=== PATIENT | female | born 1950 ===

== ENCOUNTER 2023-02-01 09:32 | Observation (INO) ==
--- NOTE | 2023-02-01 10:36 | XRay Report ---
XR chest 1V portable CLINICAL HISTORY: Chest pain, nonspecific TECHNIQUE: Single frontal radiograph of the chest was obtained. Comparison: None available at the time of this dictation. FINDINGS: No lines and tubes are seen. Calcified aortic knob is seen. The lungs are clear. Blunting of the righ t costophrenic angle is seen. IMPRESSION: Blunting of the right costophrenic angle may represent scarring and/or trace effusion. ACT 112: Negative or not required by law. Electronically signed by: Vivek Larkin M.D. 02/01/2023 10:35 AM
[2023-02-01 10:48] LABS: BUN Creatinine Ratio 21.5 (10-20); Calcium 9.1 mg/dl (8.6-10.3); Est GFR (African American) 103.5 ml/min; Est GFR (Non-African American) 89.3 ml/min; Potassium 3.8 mmol/L (3.5-5.1)
[2023-02-01 10:53] LABS: Basophils # (auto) 0.02 K/uL (0-0.2); Basophils % (auto) 0.2 %; Immature Granulocytes # (auto) 0.02 K/uL (0.01-0.20); Immature Granulocytes % (auto) 0.2 %; Lymphocytes # (auto) 0.96 K/uL (1.2-3.4); Lymphocytes % (auto) 11.6 %; Monocytes # (auto) 0.54 K/uL (0.11-0.59); Monocytes % (auto) 6.5 %; Neutrophils # (auto) 6.77 K/uL (1.40-6.50); Neutrophils % (auto) 81.5 %; Platelet Estimate Normal (Normal); Troponin I High Sensitivity 7.6 pg/ml (0-14)
[2023-02-01 10:54] LABS: Hematocrit (blood only) 38.4 % (37.0-47.0); Hemoglobin 12.1 g/dl (12.0-16.0); Mean Corpuscular Hemoglobin 30.3 pg (25.0-34.0); Mean Corpuscular Hgb Conc 31.5 g/dL (32.0-36.0); Mean Platelet Volume 11.4 fL (9.4-12.4); Platelet Count 209 K/uL (130-400); RDW Coefficient of Variation 12.1 % (11.5-14.5); RDW Standard Deviation 43.2 fL (36.4-46.3); White Blood Count 8.31 K/ul (4.8-10.8)
[2023-02-01 10:59] LABS: Partial Thromboplastin Ratio 0.8; Partial Thromboplastin Time 22.2 Seconds (21.0-31.0); Prothrombin Time 10.6 Seconds (9.0-12.0)
[2023-02-01 11:04] LABS: D Dimer 960 ug/L FEU (0-500)
[2023-02-01] MEDS ORDERED: OPTIRAY 320 125ml IV ONE (11:45)
--- NOTE | 2023-02-01 12:14 | CT Scan Report ---
CT angio chest PE protocol CLINICAL HISTORY: ro PE TECHNIQUE: Multidetector row helical CT of the chest was performed with angiographic protocol. Ruggiero l and sagittal reformations were obtained. Coronal and sagittal MIPS were obtained from the axial kate a set and were submitted for review. Automated dose lowering techniques and/or adjustment according to patient size were utilized for this exam. CT DOSE: 303.25 mGy.cm Comparison: None available at the time of this dictation. FINDINGS: Lungs and pleura: Right pleural effusion with underlying atelectasis and groundglass opacities.. Heart and pericardium: Heart size is normal. No pericardial effusion. Vessels: There is a pulmonary embolus in the right lower lobe segmental artery. Mediastinum and tiffani: Unremarkable. Chest wall and lower neck: Patient is status post thyroidectomy. Abdomen: Unremarkable. Bones: Degenerative changes in the thoracic spine. IMPRESSION: Right lower lobe pulmonary embolus is seen with associated pulmonary infarct. There is a small right pleural effusion. ACT 112: Negative or not required by law. Electronically signed by: Vivek Larkin M.D. 02/01/2023 12:12 PM
--- NOTE | 2023-02-01 12:43 | Electrocardiogram Report ---
Test Reason : Blood Pressure : / mmHG Vent. Rate : 079 BPM Atrial Rate : 079 BPM P-R Int : 132 ms QRS Dur : 090 ms QT Int : 380 ms P-R-T Axes : 037 041 038 degrees QTc Int : 435 ms Normal sinus rhythm Normal ECG No previous ECGs available Confirmed by Himanshu Vicente ([id number]) on 02/01/2023 12:43:03 PM Referred By: Confirmed By:Himanshu Vicente
[2023-02-01] MEDS ORDERED: Heparin IV Adult Wt-Based Standard WITH Bolus Protocol IV STA (13:41)
[2023-02-01] MEDS ORDERED: HEPARIN SOD (PORCINE) 1000 UNIT/ML IV ONE (13:56)
[2023-02-01] MEDS ORDERED: HEPARIN SODIUM/DEXTROSE 25,000 UNITS/500 ML BAG IV SCH (14:00)
--- NOTE | 2023-02-01 14:51 | History & Physical Report ---
Date of Service February 01, 2023 Assessment & Plan (1) Pulmonary embolism: (2) Pulmonary infarction: Plan: Acute PE with associated pulmonary infarction. Denies chest pain currently, will give pain meds if needed. No current need for oxygen. Anticoagulated on heparin. I contacted her pharmacy and apixaban would be >$500/mo but Xarelto was $80/month. Starter pack for Xarelto was ordered and will be at her pharmacy by tomorrow. Will plan to transition her to Xarelto when she is closer to discharge. Echo to evaluate if any heart strain. Appreciate pulmonary thoughts given infarction. CXR in am for monitoring. Will also monitor on telemetry. (3) H/O malignant neoplasm of breast: Plan: h/o this in 2010. Would encourage her to stay up to date with screening colonoscopy and mammograms and other age related screenings. (4) HTN (hypertension): Plan: chronic, stable. Cont losartan per home regimen. (5) Hypothyroid: Plan: acquired after surgery many years ago. Chronic, TSH pending but clinically stable. Cont Synthroid per home regimen. Heparin drip for DVT prophylaxis Full Code Dispo- to home in 1-2 days. [facility] of Present Illness Chief Complaint: chest pain Primary Care Provider: NO PCP 72 yo F presents with chest tightness. She reports a severe leg cramp a few days ago. She was short of breath, but no longer. She denies any other respiratory symptoms or fevers. She did travel here from [place], [place] by air and this was a 5 [address] flight. She did have a h/o breast cancer in 2010. She is from out of state and PCP records are not available for review. She denies anyherbal supplements, HRT or other medications which may be thrombogenic. She denies surgery, trauma or other known provoking factor. She recently travelled to [place] and is here for a short stay, then on to [facility] by car round trip followed by a cruise to [facility] [place]. She has no plans to be back in [place] for a few months and no established PCP here. Allergies Allergy/AdvReac Type Severity Reaction Status Date / Time pcn Allergy Severe Hives Uncoded 02/01/23 14:53 Home Medications Medication Instructions Recorded Confirmed Type atorvastatin 20 mg tablet 20 mg PO DAILY 02/01/23 02/01/23 History levothyroxine 75 mcg tablet 75 mcg PO DAILY 02/01/23 02/01/23 History losartan 50 mg tablet 50 mg PO DAILY 02/01/23 02/01/23 History rivaroxaban 15 mg (42)-20 mg (9) See Rx Instructions PO .COMPLEX 02/01/23 Rx tablets in a starter pack (Xarelto #51 ea DVT-PE Treatment 30-Day Starter) Past Med/Surg History Medical History (Updated 02/01/23 @ 16:40 by Amina Valladares, DO) Breast cancer s/p XRT and chemotherapy Dyslipidemia HTN (hypertension) Hypothyroid Surgical History S/P foot surgery S/P lumpectomy, left breast 2011 S/P shoulder surgery S/P thyroidectomy Social History Smoking Status: Never smoker Hx Alcohol Use: Yes Hx Substance Use: No Preferred Language: Telugu Feels Safe at Home: Yes Immunizations: Arcelia Huynh-daughter is preferred POA Review of Systems Review of Systems: All systems were reviewed and negative except as indicated on HPI above. Physical Exam Physical Exam: CONSTITUTIONAL: WNWD, vitals as above, generally well-appearing, NAD EYES: normal conjunctivae, no scleral icterus ENT: external ear and nose normal, MMM NECK: trachea midline RESPIRATORY: mild crackles at right base, no rales or wheezes, normal respiratory effort CARDIOVASCULAR: regular rate and rhythm, S1 and 2 heard without murmurs, gallops or rubs, no JVD, no peripheral edema CHEST: inspection of chest was normal GASTROINTESTINAL: soft, nontender, ND, no guarding MUSCULOSKELETAL: strength 5/5 throughout, head is normocephalic and atraumatic SKIN: warm and dry NEUROLOGIC: CN 2-12 grossly intact, no sensory deficit, normal cognition, normal speech, no tremor PSYCHIATRIC: alert cooperative and oriented to person, place and time. Euthymic mood, makes good eye contact, language grossly intact, recent and remote memory grossly intact. Results & Data Results & Data Vital Signs (Past 12 Hours) Vital Signs Temp Pulse Pulse Resp BP BP Pulse Ox 02/01/23 14:05 79 02/01/23 12:00 89 18 135/64 98 07/16/23 10:26 77 18 133/77 99 02/01/23 09:50 78 98 02/01/23 09:50 99 02/01/23 09:58 79 02/01/23 09:38 36.7 C 64 20 165/94 H 97 O2 Del Method 02/01/23 14:05 02/01/23 12:00 02/01/23 10:26 02/01/23 09:50 Room Air 02/01/23 09:50 Room Air 02/01/23 09:58 02/01/23 09:38 Room Air Laboratory Results Short CBC 02/01/23 Range/Units 09:50 WBC 8.31 (4.8-10.8) K/ul Hgb 12.1 (12.0-16.0) g/dl Hct 38.4 (37.0-47.0) % Plt Count 209 (130-400) K/uL BMP 02/01/23 09:50 Sodium 141 Potassium 3.8 Chloride 106 Carbon Dioxide 26 BUN 14 Creatinine 0.65 Glucose 108 H Calcium 9.1 Diagnostic Findings Chest X-Ray 02/01/23 09:52 XR chest 1V portable CLINICAL HISTORY: Chest pain, nonspecific TECHNIQUE: Single frontal radiograph of the chest was obtained. Comparison: None available at the time of this dictation. FINDINGS: No lines and tubes are seen. Calcified aortic knob is seen. The lungs are clear. Blunting of the right costophrenic angle is seen. IMPRESSION: Blunting of the right costophrenic angle may represent scarring and/or trace effusion. ACT 112: Negative or not required by law. Electronically signed by: Vivek Larkin M.D. 02/01/2023 10:35 AM Chest CTA 02/01/23 11:04 CT angio chest PE protocol CLINICAL HISTORY: ro PE TECHNIQUE: Multidetector row helical CT of the chest was performed with angiographic protocol. Coronal and sagittal reformations were obtained. Coronal and sagittal MIPS were obtained from the axial data set and were submitted for review. Automated dose lowering techniques and/or adjustment according to patient size were utilized for this exam. CT DOSE: 303.25 mGy.cm Comparison: None available at the time of this dictation. FINDINGS: Lungs and pleura: Right pleural effusion with underlying atelectasis and groundglass opacities.. Heart and pericardium: Heart size is normal. No pericardial effusion. Vessels: There is a pulmonary embolus in the right lower lobe segmental artery. Mediastinum and tiffani: Unremarkable. Chest wall and lower neck: Patient is status post thyroidectomy. Abdomen: Unremarkable. Bones: Degenerative changes in the thoracic spine. IMPRESSION: Right lower lobe pulmonary embolus is seen with associated pulmonary infarct. There is a small right pleural effusion. ACT 112: Negative or not required by law. Electronically signed by: Vivek Larkin M.D. 02/01/2023 12:12 PM Code Status & VTE Plan VTE Prophylaxis Plan VTE Prophylaxis will be ordered: Yes (1) Pulmonary embolism Acute cor pulmonale presence: without acute cor pulmonale Chronicity: acute Pulmonary embolism type: unspecified Qualified Code(s): I26.99 - Other pulmonary embolism without acute cor pulmonale
--- NOTE | 2023-02-01 15:40 | Emergency Department Note ---
History of Present Illness General Chief Complaint: Chest Pain Stated Complaint: CHEST PAIN/TIGHTNESS - REFERRED BY CELINE Time Seen by Provider: 02/01/23 09:52 History of Present Illness Provider Complaint: chest pain Onset (ago): day(s) 2 Duration: intermittent Onset: during rest Pain Location: substernal and left chest Pain Radiation: none Severity: moderate Maximum Pain Intensity: 7 Quality: + tightness Relieved By: + nothing Exacerbated By: + nothing Context: + recent travel; no recent surgery, no recent immobilization, no trauma/injury, no new medications or no history of DVT/PE Associated symptoms: + dyspnea and + cough; no nausea, no vomiting, no diaphoresis, no syncope, no palpitations or no leg swelling Treatments prior to arrival: none Home Medications Medication Instructions Recorded Confirmed Type apixaban 5 mg (74 tabs) tablets in 5 mg PO BID #74 ea 02/01/23 Rx a dose pack atorvastatin 20 mg tablet 20 mg PO DAILY 02/01/23 02/01/23 History levothyroxine 75 mcg tablet 75 mcg PO DAILY 02/01/23 02/01/23 History losartan 50 mg tablet 50 mg PO DAILY 02/01/23 02/01/23 History Allergies Allergy/AdvReac Type Severity Reaction Status Date / Time pcn Allergy Severe Hives Uncoded 02/01/23 14:53 Past Med/Surg History Medical History Breast cancer s/p XRT and chemotherapy Dyslipidemia HTN (hypertension) Surgical History S/P foot surgery S/P lumpectomy, left breast 2011 S/P shoulder surgery S/P thyroidectomy Social History Smoking Status: Never smoker Hx Alcohol Use: Yes Hx Substance Use: No Preferred Language: Chilean Feels Safe at Home: Yes Physical Exam Vital Signs Vital Signs - 24 hr 02/01/23 09:38 02/01/23 09:58 02/01/23 09:50 Temperature 36.7 C Temperature Source Temporal Artery Scan Pulse Rate 64 79 Pulse Rate [Left Finger] Respiratory Rate 20 Respiratory Effort / Characteristics Non-Labored Spontaneous Respiratory Depth Normal Respiratory Pattern Blood Pressure 165/94 H Blood Pressure [Left Arm] Blood Pressure Mean 117 Blood Pressure Mean [Left Arm] Blood Pressure Position [Left Arm] Pulse Oximetry 97 99 Oxygen Delivery Method Room Air Room Air Sepsis Recent Fever Within 48 Hours No Sepsis New/Unexplained Change in Mental Status N/A Sepsis Action Taken by Nursing No Action Required 02/01/23 09:50 02/01/23 10:26 02/01/23 12:00 Temperature Temperature Source Pulse Rate 78 Pulse Rate [Left Finger] 77 89 Respiratory Rate 18 18 Respiratory Effort / Characteristics Respiratory Depth Respiratory Pattern Blood Pressure Blood Pressure [Left Arm] 133/77 135/64 Blood Pressure Mean Blood Pressure Mean [Left Arm] 95 87 Blood Pressure Position [Left Arm] Sitting Sitting Pulse Oximetry 98 99 98 Oxygen Delivery Method Room Air Sepsis Recent Fever Within 48 Hours Sepsis New/Unexplained Change in Mental Status Sepsis Action Taken by Nursing 02/01/23 14:05 02/01/23 13:00 Temperature Temperature Source Pulse Rate 79 Pulse Rate [Left Finger] 79 Respiratory Rate 18 Respiratory Effort / Characteristics Non-Labored Spontaneous Respiratory Depth Respiratory Pattern Regular Blood Pressure Blood Pressure [Left Arm] 141/74 H Blood Pressure Mean Blood Pressure Mean [Left Arm] 96 Blood Pressure Position [Left Arm] Lying Pulse Oximetry 99 Oxygen Delivery Method Room Air Sepsis Recent Fever Within 48 Hours Sepsis New/Unexplained Change in Mental Status Sepsis Action Taken by Nursing Physical Exam GENERAL: oriented to person, place, and time. appears well-developed and well- nourished. HENT: Exam performed. - Head: Normocephalic and atraumatic. EYES: Conjunctivae and EOM are normal. Right eye exhibits no discharge. Left eye exhibits no discharge. No scleral icterus. NECK: Normal range of motion. Neck supple. No JVD present. CV: Normal rate, regular rhythm, normal heart sounds and intact distal pulses. There is no peripheral edema. Palpable radial pulses bue. PULM/CHEST: Effort normal and breath sounds normal. No respiratory distress. No stridor. no wheezes. no rales. ABD: The abdomen is soft. There is no tenderness. NEURO: Motor and sensation grossly intact. SKIN: Skin is warm and dry. He is not diaphoretic. PSYCH: normal mood and affect. Behavior is normal. Judgment and thought content normal. Course Course 951: The patient was evaluated in room B4. A complete history and physical exam was performed Administered Medications Heparin Sodium/Dextrose (Heparin Sodium/Dextrose) 25,000 units in 500 mls @ 0.02 mls/hr IV .Q24H PENDING SALE TO [facility]; Protocol Stop: 03/03/23 13:59 Last Admin: 02/01/23 14:06 Dose: 850 units/hr, 17 mls/hr Documented By: MARISEL Co-signed By: MURPHY Discontinued Medications Heparin Sodium (Porcine) (Heparin Sod (Porcine) 1000 Unit/Ml) 1 units IV NOW ONE Stop: 02/01/23 13:57 Last Admin: 02/01/23 14:06 Dose: 4,000 units Documented By: MARISEL Co-signed By: MURPHY Ioversol (Optiray 320 125ml) 120 ml IV ONCE ONE Stop: 02/01/23 11:46 Last Admin: 02/01/23 11:36 Dose: 120 ml Documented By: JOSE ANTONIO Medical Decision Making Laboratory Data Attestation: I reviewed the patient's lab results. 02/01/23 09:50 02/01/23 09:50 Labs: Lab Results 02/01/23 02/01/23 02/01/23 Range/Units 09:50 09:50 09:50 WBC 8.31 (4.8-10.8) K/ul RBC 4.00 L (4.20-5.40) M/uL Hgb 12.1 (12.0-16.0) g/dl Hct 38.4 (37.0-47.0) % MCV 96.0 (80.0-100.0) fL MCH 30.3 (25.0-34.0) pg MCHC 31.5 L (32.0-36.0) g/dL RDW Std Deviation 43.2 (36.4-46.3) fL RDW Coeff of Nai 12.1 (11.5-14.5) % Plt Count 209 (130-400) K/uL MPV 11.4 (9.4-12.4) fL Immature Gran % (Auto) 0.2 % Neut % (Auto) 81.5 % Lymph % (Auto) 11.6 % [place] % (Auto) 6.5 % Eos % (Auto) 0.0 % Baso % (Auto) 0.2 % Neut # (Auto) 6.77 H (1.40-6.50) K/uL Lymph # (Auto) 0.96 L (1.2-3.4) K/uL [place] # (Auto) 0.54 (0.11-0.59) K/uL Eos # (Auto) 0.00 (0-0.50) K/uL Baso # (Auto) 0.02 (0-0.2) K/uL Immature Gran # (Auto) 0.02 (0.01-0.20) K/uL Platelet Estimate Normal (Normal) PT 10.6 (9.0-12.0) Seconds INR 1.0 (0.9-1.1) APTT 22.2 (21.0-31.0) Seconds PTT Ratio 0.8 D-Dimer 960 H* (0-500) ug/L FEU Sodium 141 (136-145) mmol/L Potassium 3.8 (3.5-5.1) mmol/L Chloride 106 (98-107) mmol/L Carbon Dioxide 26 (21-32) mmol/L Anion Gap 9 (3-11) BUN 14 (6-23) mg/dl Creatinine 0.65 (0.6-1.2) mg/dl Est Cr Clr Drug Dosing 57.0 ml/min Est GFR ( Amer) 103.5 ml/min Est GFR (Non-Af Amer) 89.3 ml/min BUN/Creatinine Ratio 21.5 H (10-20) Glucose 108 H (70-99(Fasting)) mg/dl Calcium 9.1 (8.6-10.3) mg/dl Troponin I High Sens 7.6 (0-14) pg/ml Lipase 21 (11-82) U/L SARS-CoV-2, RNA, NAAT (NEGATIVE) 02/01/23 02/01/23 Range/Units 12:19 14:17 WBC (4.8-10.8) K/ul RBC (4.20-5.40) M/uL Hgb (12.0-16.0) g/dl Hct (37.0-47.0) % MCV (80.0-100.0) fL MCH (25.0-34.0) pg MCHC (32.0-36.0) g/dL RDW Std Deviation (36.4-46.3) fL RDW Coeff of Nai (11.5-14.5) % Plt Count (130-400) K/uL MPV (9.4-12.4) fL Immature Gran % (Auto) % Neut % (Auto) % Lymph % (Auto) % [place] % (Auto) % Eos % (Auto) % Baso % (Auto) % Neut # (Auto) (1.40-6.50) K/uL Lymph # (Auto) (1.2-3.4) K/uL [place] # (Auto) (0.11-0.59) K/uL Eos # (Auto) (0-0.50) K/uL Baso # (Auto) (0-0.2) K/uL Immature Gran # (Auto) (0.01-0.20) K/uL Platelet Estimate (Normal) PT (9.0-12.0) Seconds INR (0.9-1.1) APTT (21.0-31.0) Seconds PTT Ratio D-Dimer (0-500) ug/L FEU Sodium (136-145) mmol/L Potassium (3.5-5.1) mmol/L Chloride (98-107) mmol/L Carbon Dioxide (21-32) mmol/L Anion Gap (3-11) BUN (6-23) mg/dl Creatinine (0.6-1.2) mg/dl Est Cr Clr Drug Dosing ml/min Est GFR ( Amer) ml/min Est GFR (Non-Af Amer) ml/min BUN/Creatinine Ratio (10-20) Glucose (70-99(Fasting)) mg/dl Calcium (8.6-10.3) mg/dl Troponin I High Sens 6.8 (0-14) pg/ml Lipase (11-82) U/L SARS-CoV-2, RNA, NAAT NEGATIVE (NEGATIVE) MDM Narrative Cardiac monitoring: An order was placed for continuous cardiac monitoring. The monitor shows a rate of 80 with sinus rhythm interpreted by me Vital signs stable. Labs are notable for 2 sets of negative troponins and a positive D-dimer. CTA of the chest shows PE with pulmonary infarct. Patient has a class III intermediate PESI score. Joint decision-making was made with the patient regarding outpatient discharge with [facility] and follow-up outpatient versus inpatient admission. Patient is not from this area originally and is visiting from [place], she has no physicians in the area. Patient also reports that she is coming in and out of the area and traveling internationally over the next few weeks. Given this, I thought the patient had difficulty arranging outpatient follow-up if [facility] Patient will be admitted to this facility started on heparin and be evaluated by cardiology and pulmonology. [facility] hospitalist team Dr. Valladares aware of the patient. Pulmonary Embolism Severity Index (PESI) from [employer] on 02/01/2023 All calculations should be rechecked by clinician prior to use RESULT SUMMARY: 101 points Class III, Intermediate Risk: 3.2-7.1% 30-day mortality in this group. INPUTS: Age > 71 years History of cancer > 30 = Yes Impression & Plan Pulmonary embolism Critical Care Time Critical Care Time: Yes Total Critical Care Time: 43 I have personally spent greater than 43 minutes of critical care time in the direct management of this patient. This includes bedside care, interpretation of diagnostic studies, and testing, discussion with consultants, patient, and family members, and other required patient management activities. This 43 minutes is in excess of all separately billable procedures. Discharge Plan Visit Data Chief Complaint: Chest Pain Stated Complaint: CHEST PAIN/TIGHTNESS - REFERRED BY [facility] Provider: Parth Cardenas Discharge Problem: Pulmonary embolism Patient Disposition: Admitted As Inpatient Forms Stand Alone Forms: My [facility] Prescriptions Prescriptions: New apixaban 5 mg (74 tabs) tablets,dose pack 5 mg PO BID Qty: 74 0RF No Action losartan 50 mg tablet 50 mg PO DAILY atorvastatin 20 mg tablet 20 mg PO DAILY levothyroxine 75 mcg tablet 75 mcg PO DAILY Referrals Referrals: PCP,NO [Primary Care Provider] -
[2023-02-01] MEDS ORDERED: ACETAMINOPHEN 325 MG TAB PO PRN (17:48)
[2023-02-01 21:52] LABS: Partial Thromboplastin Ratio 2.1
[2023-02-01 22:12] LABS: Partial Thromboplastin Time 60.3 Seconds (21.0-31.0)
--- NOTE | 2023-02-01 22:46 | Ultrasound Report ---
US venous doppler LE BI CLINICAL HISTORY: acute PE, rule out DVT TECHNIQUE: Bilateral lower extremity real-time compression venous ultrasound with Color Doppler imagi ng. Utilizing real-time ultrasonic imaging multiple real time high-resolution ultrasonic images with compression and noncompression maneuvers of the deep venous system in addition to color doppler imagi ng were performed from the common femoral vein through the proximal calf veins. COMPARISON: None available at the time of this dictation. FINDINGS/IMPRESSION: Currently there is normal compressibility of the deep venous system from the common femoral vein thro ugh the proximal calf veins. No superficial venous thrombosis is identified. ACT 112: Negative or not required by law. Electronically signed by: Vivek Larkin M.D. 02/01/2023 10:45 PM
[2023-02-02 04:36] LABS: Hematocrit (blood only) 34.9 % (37.0-47.0); Hemoglobin 11.6 g/dl (12.0-16.0); Mean Corpuscular Hemoglobin 31.4 pg (25.0-34.0); Mean Corpuscular Hgb Conc 33.2 g/dL (32.0-36.0); Mean Corpuscular Volume 94.3 fL (80.0-100.0); Mean Platelet Volume 10.8 fL (9.4-12.4); Platelet Count 211 K/uL (130-400); RDW Coefficient of Variation 12.2 % (11.5-14.5); RDW Standard Deviation 42.5 fL (36.4-46.3); White Blood Count 6.01 K/ul (4.8-10.8)
[2023-02-02 04:53] LABS: BUN Creatinine Ratio 24.6 (10-20); Calcium 8.7 mg/dl (8.6-10.3); Creatinine Clr Calc Pharmacy 60.8 ml/min; Est GFR (African American) 105.7 ml/min; Est GFR (Non-African American) 91.2 ml/min; Potassium 3.5 mmol/L (3.5-5.1)
[2023-02-02 05:27] LABS: Partial Thromboplastin Ratio 2.1
[2023-02-02 05:34] LABS: Partial Thromboplastin Time 59.6 Seconds (21.0-31.0)
[2023-02-02] MEDS ORDERED: LEVOTHYROXINE SODIUM 75 MCG TABLET PO SCH (06:30)
--- NOTE | 2023-02-02 08:47 | Pulmonary Consultation ---
Date of Consultation February 02, 2023 Assessment & Plan (1) Pulmonary embolism: Acute cor pulmonale presence: without acute cor pulmonale Chronicity: acute Pulmonary embolism type: unspecified Qualified Code(s): I26.99 - Other pulmonary embolism without acute cor pulmonale (2) Pulmonary infarction: (3) Pleural effusion: Plan IMPRESSION: 72-year-old female significant past medical history presenting with new findings of RIGHT lower lobe pulmonary emboli with associated infarct and small pleural effusion. RECOMMENDATIONS: 1. Pulmonary embolism/pulmonary infarct - Patient with provoked event in the setting of significant long distance air travel. She can be started on a DOAC at this point. Echocardiogram reviewed and demonstrates an EF of 65 to 70% with normal RV pressures and size. Findings not consistent with pulmonary hypertension. Moving forward, the patient will be anticoagulated for a period of 3 to 6 months with close follow-up with her primary care providers moving forward. No utility in follow-up CTA, unless the patient were develop worsening symptoms including worsening pleuritic pain, fevers, worsening shortness of breath, or hemoptysis. Additionally, no need for follow-up echocardiogram and otherwise normal echocardiogram. Patient can continue to follow-up with her primary care provider for continued ordering and monitoring of DOAC therapy. As discussed with the patient, she was certainly continue to require DOAC therapy, especially with her anticipated travel in the next few months. 2. Pleural effusion - Uncertain if this represents relationship to pulmonary infarcts. Would monitor with follow-up chest x-ray in 4 weeks to assess effusion status. Size effusion not amenable to thoracentesis at this time. As discussed with the patient, if her symptoms were to worsen, this may prompt need for repeat CTA, however not indicated currently. Thank you for allowing us to participate in the care of this patient. Supervising Physician Co-Signing Physician Notes Patient seen and examined. EMR reviewed. Images were independently reviewed. The patient is doing well on room air. She states she anticipates being dismissed from the hospital today. She been started on blood thinners and is not having any bleeding complications. She not had any hemoptysis. Agree with assessment plan as noted by PA above. Would recommend lifelong anticoagulation given the patient's frequent airline travel. If she elects to discontinue anticoagulation, consideration for an outpatient hematology oncology evaluation and hypercoagulable work-up would be appropriate. The patient gets the majority of her care in [place] and does not have a primary care provider here. We will try and get her into a pulmonary clinic next week with a chest x-ray to ensure the effusion is not increasing in size. Recommended that she get copies of all of her medical records including CD of the images to take to her healthcare team in [place]. Thanks for the opportunity participating the care of this patient. Feel free to contact us with questions or concerns History of Present Illness Reason for Consultation: Pulmonary Infarction Requesting Physician: Dr. Valladares Attending Physician: Maximiliano Mitchell MD History of Present Illness Patient is a 72-year-old female with a significant past medical history of hypertension, hypothyroidism, and prior history of breast cancer who presented to the emergency department yesterday with complaints of chest pain and dyspnea on exertion. Patient recently traveled from [place] to her home in [place]. She subsequently flew from [place] to [place] this past week. She states that on she noticed an intense LEFT-sided calf cramp which is new for her. She states that this did resolve, but noticed that on Thursday she had some tightness in her chest. The chest tightness worsened with some associated breathlessness and dry cough which prompted emergency visit. During evaluation, the patient was noted to have an elevated D-dimer. CTA demonstrated RIGHT-sided pulmonary emboli with pulmonary infarct and small pleural effusion. She was started on heparin drip. Pulmonary medicine consulted for recommendations in the setting of pulmonary infarct. Upon evaluation today in room 2852, the patient is awake, alert, and oriented. She states that her symptoms have seemed to improve overnight and she has less discomfort with breathing. The patient reports no prior history of clotting disorders, but reports that her daughter does struggle with clotting issues and there is been issues with fertility related to clotting. The daughter does follow with a fabricator special items because of this. Patient is unaware of any underlying diagnoses otherwise. Patient reports no smoking history. She has had significant travel recently. No history of recurrence of malignancy. Patient currently denies complaints of dizziness, lightheadedness, palpitations, or pain elsewhere. Allergies Allergy/AdvReac Type Severity Reaction Status Date / Time Penicillins Allergy Severe Hives Verified 02/01/23 18:02 Home Medications Medication Instructions Recorded Confirmed Type atorvastatin 20 mg tablet 20 mg PO DAILY 02/01/23 02/01/23 History levothyroxine 75 mcg tablet 75 mcg PO DAILY 02/01/23 02/01/23 History losartan 50 mg tablet 50 mg PO DAILY 02/01/23 02/01/23 History rivaroxaban 15 mg (42)-20 mg (9) See Rx Instructions PO .COMPLEX 02/01/23 Rx tablets in a starter pack (Xarelto #51 ea DVT-PE Treatment 30-Day Starter) Patient History Medical History Breast cancer s/p XRT and chemotherapy Dyslipidemia HTN (hypertension) Hypothyroid Surgical History S/P foot surgery S/P lumpectomy, left breast 2011 S/P shoulder surgery S/P thyroidectomy Social History Smoking Status: Never smoker Hx Alcohol Use: Yes Alcohol type: wine Hx Substance Use: No Preferred Language: Kittitian Communication Ability: Effective Animal Nutrition Consultant Required: No Beliefs That Will Affect Care: None Current Living Situation: Alone Feels Safe at Home: Yes Safety Concerns: Feels Safe At This Time Assistive Devices: Glasses Review of Systems Review of Systems: A complete 10 point review of systems was reviewed with the patient with pertinent positives and negatives as per history of present illness. All else were negative. Physical Exam Physical Exam: VITAL SIGNS - Vital signs and nursing notes were reviewed. GENERAL - 72-year-old female appearing her stated age who is in no acute distress. Communicates well with provider and answers questions appropriately. SKIN - Without rashes or lesions. NOSE - Midline and without cyanosis. MOUTH/OROPHARYNX - Without perioral cyanosis. NECK - Neck with FROM. LUNGS - Chest wall evaluation demonstrates normal chest wall A:P diameter. Auscultation reveals clear breath sounds bilaterally without wheezes, rales, or rhonchi. CARDIAC - RRR with S1/S2. No murmur, rubs, or gallops appreciated. EXTREMITIES - Nail clubbing not present. No peripheral cyanosis. No pretibial edema present. PSYCH - A&Ox3 and cooperates fully with examiner. Pt is very pleasant and interacts well with examiner. Results & Data Results & Data Vital Signs (Past 12 Hours) Vital Signs Temp Pulse Pulse Resp BP Pulse Ox O2 Del Method 02/02/23 07:16 36.8 C 71 16 123/78 98 Room Air 02/02/23 07:15 68 02/02/23 03:40 36.9 C 79 18 142/80 H 96 Room Air 02/01/23 22:10 66 02/01/23 22:52 Room Air 02/01/23 22:50 36.8 C 65 16 111/69 97 Room Air PG Care Time/CCT Total # of Minutes Spent Total Time Spent with Patient: Total time spent is greater than 50% in coordination of care (as documented) at patient's floor/unit and/or counseling patient: Coding Level of Care Code 70110 INT INP/OBS CARE 75MIN Diagnoses Pulmonary embolism I26.99 Acute cor pulmonale presence: without acute cor pulmonale Chronicity: acute Pulmonary embolism type: unspecified Pulmonary infarction I26.99 Pleural effusion J90
[2023-02-02] MEDS ORDERED: ATORVASTATIN 20 MG TAB PO SCH (09:00)
[2023-02-02] MEDS ORDERED: LOSARTAN POTASSIUM 50 MG TAB PO SCH (09:00)
[2023-02-02] MEDS ORDERED: RIVAROXABAN 15 MG TAB PO SCH (10:15)
--- NOTE | 2023-02-02 12:04 | Hospitalist Progress Note ---
Date of Service February 02, 2023 delayed entry date of service noted above Assessment & Plan (1) Pulmonary embolism: (2) Pulmonary infarction: Plan: Acute PE with associated pulmonary infarction. CT chest: Right lower lobe pulmonary embolus is seen with associated pulmonary infarct. There is a small right pleural effusion. Echo: no right heart strain evaluated by Pulmonology service- Dr. Asif Tubbs recommendations: "Would recommend lifelong anticoagulation given the patient's frequent airline travel. If she elects to discontinue anticoagulation, consideration for an outpatient hematology oncology evaluation and hypercoagulable work-up would be appropriate. We will try and get her into a pulmonary clinic next week with a chest x-ray to ensure the effusion is not increasing in size. Recommended that she get copies of all of her medical records including CD of the images to take to her healthcare team in [place]." discharged on: Xarelto BID x 21 days, then daily ff up with Pulm next week (3) H/O malignant neoplasm of breast: Plan: h/o this in 2010. Would encourage her to stay up to date with screening colonoscopy and mammograms and other age related screenings. (4) HTN (hypertension): Plan: chronic, stable. Cont losartan per home regimen. (5) Hypothyroid: Plan: acquired after surgery many years ago. Chronic, TSH pending but clinically stable. Cont Synthroid per home regimen. plan of care discussed with patient in detail and at length all questions answered she is understanding, agreeable, comfortable with the plan of care Admission and Anticipated Discharge Date Admission Date: February 01, 2023 Subjective ff up for acute PE, etc seen resting in bed, comfortable states she feels better overall no chest pain, dyspnea, palpitations, dizziness has mild cough ambulating with no problems no other symptoms Review of Systems Review of Systems: all noted and negative except for above Physical Exam Physical Exam: General- oriented x 3, not in distress, speaks in sentences with no effort or accessory muscle use Head- atraumatic Eyes- PERRL, EOMI, anicteric ENT- oropharynx clear Neck- supple, no JVD, no adenopathy, no thyromegaly; carotids +2/2, no bruits appreciated Lungs- faint rales on the right base, clear on the left no wheezing Heart- normal rate, regular rhythm; no murmur, no gallop, no rub appreciated Abdomen- normal bowel sounds, nondistended, soft, nontender, no masses or hepatosplenomegaly Extremities- no pretibial edema, no calf tenderness; peripheral pulses intact Neuro- alert, oriented x 3; CN 2-12 grossly intact; motor 5/5 bilaterally;sensation 100% on all extremities; no other gross focal neurologic deficits Skin- warm & dry Results & Data Results & Data Vital Signs (Past 12 Hours) Vital Signs Temp Pulse Pulse Pulse Pulse Resp Resp 02/02/23 11:24 37 C 87 18 02/02/23 10:48 92 H 86 20 02/02/23 07:16 36.8 C 71 16 02/02/23 07:15 68 02/02/23 03:40 36.9 C 79 18 Resp BP Pulse Ox Pulse Ox Pulse Ox O2 Del Method 02/02/23 11:24 119/78 96 Room Air 02/02/23 10:48 18 91 98 02/02/23 07:16 123/78 98 Room Air 02/02/23 07:15 02/02/23 03:40 142/80 H 96 Room Air all noted and reviewed including below (1) Pulmonary embolism Acute cor pulmonale presence: without acute cor pulmonale Chronicity: acute Pulmonary embolism type: unspecified Qualified Code(s): I26.99 - Other pulmonary embolism without acute cor pulmonale
--- NOTE | 2023-02-02 13:42 | Communication Note ---
Date of Service: February 02, 2023 By CMS guidelines, a determination that the admission or continued stay is not medically necessary has been made by a member of the Utilization Review comm ittee and a physician for this hospital stay. Therefore, a Code 44 will be completed and the inpatient admission will be changed to outpatient. DO Blaine
--- NOTE | 2023-02-02 19:34 | Discharge Summary ---
Discharge Summary Date of Service February 02, 2023 delayed entry date of service noted above Notes For Next Care Provider Medication Changes From Visit Enidvinodto Admission HPI Per Admitting Provider 72 yo F presents with chest tightness. She reports a severe leg cramp a few days ago. She was short of breath, but no longer. She denies any other respiratory symptoms or fevers. She did travel here from [place], [place] by air and this was a 5 hr flight. She did have a h/o breast cancer in 2010. She is from out of state and PCP records are not available for review. She denies anyherbal supplements, HRT or other medications which may be thrombogenic. She denies surgery, trauma or other known provoking factor. She recently travelled to [place] and is here for a short stay, then on to [facility] by car round trip followed by a cruise to [facility]. She has no plans to be back in [place] for a few months and no established PCP here. Admission Exam Per Admitting Provider CONSTITUTIONAL: WNWD, vitals as above, generally well-appearing, NAD EYES: normal conjunctivae, no scleral icterus ENT: external ear and nose normal, MMM NECK: trachea midline RESPIRATORY: mild crackles at right base, no rales or wheezes, normal respiratory effort CARDIOVASCULAR: regular rate and rhythm, S1 and 2 heard without murmurs, gallops or rubs, no JVD, no peripheral edema CHEST: inspection of chest was normal GASTROINTESTINAL: soft, nontender, ND, no guarding MUSCULOSKELETAL: strength 5/5 throughout, head is normocephalic and atraumatic SKIN: warm and dry NEUROLOGIC: CN 2-12 grossly intact, no sensory deficit, normal cognition, normal speech, no tremor PSYCHIATRIC: alert cooperative and oriented to person, place and time. Euthymic mood, makes good eye contact, language grossly intact, recent and remote memory grossly intact. Principal Dx & Hospital Course #1 = Principal Diagnosis (1) Pulmonary embolism: (2) Pulmonary infarction: Acute PE with associated pulmonary infarction. CT chest: Right lower lobe pulmonary embolus is seen with associated pulmonary infarct. There is a small right pleural effusion. Echo: no right heart strain, grade 1 diastolic dysfunction, EF 65-70%, moderate concentric LVH small right lateral loculated and organized pericardial effusion of non hemodynamic significance evaluated by Pulmonology service- Dr. Asif Tubbs recommendations: "Would recommend lifelong anticoagulation given the patient's frequent airline travel. If she elects to discontinue anticoagulation, consideration for an outpatient hematology oncology evaluation and hypercoagulable work-up would be appropriate. We will try and get her into a pulmonary clinic next week with a chest x-ray to ensure the effusion is not increasing in size. Recommended that she get copies of all of her medical records including CD of the images to take to her healthcare team in [place]." discharged on: Xarelto 15mg BID x 21 days, then 20mg daily ff up with Pulm next week (3) H/O malignant neoplasm of breast: h/o this in 2010. Would encourage her to stay up to date with screening colonoscopy and mammograms and other age related screenings. (4) HTN (hypertension): chronic, stable. Cont losartan per home regimen. (5) Hypothyroid: acquired after surgery many years ago. Chronic, TSH pending but clinically stable. Cont Synthroid per home regimen. plan of care discussed with patient in detail and at length all questions answered she is understanding, agreeable, comfortable with the plan of care Discharge Exam General- oriented x 3, not in distress, speaks in sentences with no effort or accessory muscle use Head- atraumatic Eyes- PERRL, EOMI, anicteric ENT- oropharynx clear Neck- supple, no JVD, no adenopathy, no thyromegaly; carotids +2/2, no bruits appreciated Lungs- faint rales on the right base, clear on the left no wheezing Heart- normal rate, regular rhythm; no murmur, no gallop, no rub appreciated Abdomen- normal bowel sounds, nondistended, soft, nontender, no masses or hepatosplenomegaly Extremities- no pretibial edema, no calf tenderness; peripheral pulses intact Neuro- alert, oriented x 3; CN 2-12 grossly intact; motor 5/5 bilaterally;sensation 100% on all extremities; no other gross focal neurologic deficits Skin- warm & dry Updated Medication List Medication Instructions Recorded Confirmed Type atorvastatin 20 mg tablet 20 mg PO DAILY 02/01/23 02/01/23 History levothyroxine 75 mcg tablet 75 mcg PO DAILY 02/01/23 02/01/23 History losartan 50 mg tablet 50 mg PO DAILY 02/01/23 02/01/23 History rivaroxaban 15 mg (42)-20 mg (9) See Rx Instructions PO .COMPLEX 02/01/23 Rx tablets in a starter pack (Xarelto #51 ea DVT-PE Treatment 30-Day Starter) rivaroxaban 15 mg (42)-20 mg (9) See Rx Instructions PO .COMPLEX 02/02/23 Rx tablets in a starter pack (Xarelto #51 ea DVT-PE Treatment 30-Day Starter) Hospital Stay Data Consultations 02/01/23 13:46 ED Decision to Admit Stat 02/01/23 16:43 Consult Pulmonology Routine Diagnostic Imagining Performed Laboratory Results WBC 6.01 K/ul (4.8-10.8) 02/02/23 04:08 RBC 3.70 M/uL (4.20-5.40) L 02/02/23 04:08 Hgb 11.6 g/dl (12.0-16.0) L 02/02/23 04:08 Hct 34.9 % (37.0-47.0) L 02/02/23 04:08 MCV 94.3 fL (80.0-100.0) 02/02/23 04:08 MCH 31.4 pg (25.0-34.0) 02/02/23 04:08 MCHC 33.2 g/dL (32.0-36.0) 02/02/23 04:08 RDW Std Deviation 42.5 fL (36.4-46.3) 02/02/23 04:08 RDW Coeff of Nai 12.2 % (11.5-14.5) 02/02/23 04:08 Plt Count 211 K/uL (130-400) 02/02/23 04:08 MPV 10.8 fL (9.4-12.4) 02/02/23 04:08 Immature Gran % (Auto) 0.2 % 02/01/23 09:50 Neut % (Auto) 81.5 % 02/01/23 09:50 Lymph % (Auto) 11.6 % 02/01/23 09:50 [place] % (Auto) 6.5 % 02/01/23 09:50 Eos % (Auto) 0.0 % 02/01/23 09:50 Baso % (Auto) 0.2 % 02/01/23 09:50 Neut # (Auto) 6.77 K/uL (1.40-6.50) H 02/01/23 09:50 Lymph # (Auto) 0.96 K/uL (1.2-3.4) L 02/01/23 09:50 [place] # (Auto) 0.54 K/uL (0.11-0.59) 02/01/23 09:50 Eos # (Auto) 0.00 K/uL (0-0.50) 02/01/23 09:50 Baso # (Auto) 0.02 K/uL (0-0.2) 02/01/23 09:50 Immature Gran # (Auto) 0.02 K/uL (0.01-0.20) 02/01/23 09:50 Platelet Estimate Normal (Normal) 02/01/23 09:50 PT 10.6 Seconds (9.0-12.0) 02/01/23 09:50 INR 1.0 (0.9-1.1) 02/01/23 09:50 APTT 59.6 Seconds (21.0-31.0) H* 02/02/23 04:08 PTT Ratio 2.1 02/02/23 04:08 D-Dimer 960 ug/L FEU (0-500) H* 02/01/23 09:50 Sodium 140 mmol/L (136-145) 02/02/23 04:08 Potassium 3.5 mmol/L (3.5-5.1) 02/02/23 04:08 Chloride 105 mmol/L (98-107) 02/02/23 04:08 Carbon Dioxide 27 mmol/L (21-32) 02/02/23 04:08 Anion Gap 8 (3-11) 02/02/23 04:08 BUN 15 mg/dl (6-23) 02/02/23 04:08 Creatinine 0.61 mg/dl (0.6-1.2) 02/02/23 04:08 Est Cr Clr Drug Dosing 60.8 ml/min 02/02/23 04:08 Est GFR ( Amer) 105.7 ml/min 02/02/23 04:08 Est GFR (Non-Af Amer) 91.2 ml/min 02/02/23 04:08 BUN/Creatinine Ratio 24.6 (10-20) H 02/02/23 04:08 Glucose 102 mg/dl (70-99(Fasting)) H 02/02/23 04:08 Calcium 8.7 mg/dl (8.6-10.3) 02/02/23 04:08 Troponin I High Sens 6.8 pg/ml (0-14) 02/01/23 12:19 Lipase 21 U/L (11-82) 02/01/23 09:50 TSH 0.329 uIu/ml (0.300-4.500) 02/02/23 04:08 Hepatitis C Ab (EIA) NON-REACTIVE (NON-REACTIVE) 02/01/23 09:50 SARS-CoV-2, RNA, NAAT NEGATIVE (NEGATIVE) 02/01/23 14:17 Impressions Chest X-Ray 02/01/23 09:52 XR chest 1V portable CLINICAL HISTORY: Chest pain, nonspecific TECHNIQUE: Single frontal radiograph of the chest was obtained. Comparison: None available at the time of this dictation. FINDINGS: No lines and tubes are seen. Calcified aortic knob is seen. The lungs are clear. Blunting of the right costophrenic angle is seen. IMPRESSION: Blunting of the right costophrenic angle may represent scarring and/or trace effusion. ACT 112: Negative or not required by law. Electronically signed by: Vivek Larkin M.D. 02/01/2023 10:35 AM Chest CTA 02/01/23 11:04 CT angio chest PE protocol CLINICAL HISTORY: ro PE TECHNIQUE: Multidetector row helical CT of the chest was performed with angiographic protocol. Coronal and sagittal reformations were obtained. Coronal and sagittal MIPS were obtained from the axial data set and were submitted for review. Automated dose lowering techniques and/or adjustment according to patient size were utilized for this exam. CT DOSE: 303.25 mGy.cm Comparison: None available at the time of this dictation. FINDINGS: Lungs and pleura: Right pleural effusion with underlying atelectasis and groundglass opacities.. Heart and pericardium: Heart size is normal. No pericardial effusion. Vessels: There is a pulmonary embolus in the right lower lobe segmental artery. Mediastinum and tiffani: Unremarkable. Chest wall and lower neck: Patient is status post thyroidectomy. Abdomen: Unremarkable. Bones: Degenerative changes in the thoracic spine. IMPRESSION: Right lower lobe pulmonary embolus is seen with associated pulmonary infarct. There is a small right pleural effusion. ACT 112: Negative or not required by law. Electronically signed by: Vivek Larkin M.D. 02/01/2023 12:12 PM Venous Doppler Study 02/01/23 16:35 US venous doppler LE BI CLINICAL HISTORY: acute PE, rule out DVT TECHNIQUE: Bilateral lower extremity real-time compression venous ultrasound with Color Doppler imaging. Utilizing real-time ultrasonic imaging multiple real time high-resolution ultrasonic images with compression and noncompression maneuvers of the deep venous system in addition to color doppler imaging were performed from the common femoral vein through the proximal calf veins. COMPARISON: None available at the time of this dictation. FINDINGS/IMPRESSION: Currently there is normal compressibility of the deep venous system from the common femoral vein through the proximal calf veins. No superficial venous thrombosis is identified. ACT 112: Negative or not required by law. Electronically signed by: Vivek Larkin M.D. 02/01/2023 10:45 PM 02/01/23 11:04 CT angio chest PE protocol Stat 02/01/23 16:35 US venous doppler LE BI Routine Pending Results Patient Have Any Pending Studies at Discharge: Yes Discharge Instructions Given to Patient (Per Discharging Provider) PLEASE REFER TO YOUR NEW MEDICATION LIST AND FOLLOW INSTRUCTIONS CAREFULLY. YOUR NEW MEDICATIONS INCLUDE: XARELTO - blood thinner - to be taken as follows: 15mg twice a day with food for 21 days, then 20mg daily daily with food PLEASE CALL YOUR PRIMARY CARE PHYSICIAN OR RETURN TO THE ER IF WITH WORSENING OF SYMPTOMS, INCLUDING worsening cough, chest pain, shortness of breath, etc. IF YOU SUSTAIN ANY HEAD TRAUMA, PLEASE PROCEED TO THE ER IMMEDIATELY FOR EVALUA TION. FOLLOW UP WITH [facility] PRIMARY CARE PHYSICIAN AT THE [facility] - DR. BRAVO ON THURSDAY, FEBRUARY 06, 2023 AT 2 PM. FOLLOW-UP WITH [facility] ON FEBRUARY 09, 2023 AT 9:45 PM. Clinic addresses outlined above. Total Time Total Time Spent Total Time Spent (In Minutes): >30 minutes
== END 2023-02-02 14:45 | disposition home or self-care (01) ==
LOC: ED 09:32 → SUATTDRO 14:09 → 2N 14:09 → INTOOBSV 14:09 → 2N 17:12
DX: Z79.01 Long term (current) use of anticoagulants; I26.99 Other pulmonary embolism without acute cor pulmonale; J90 Pleural effusion, not elsewhere classified; I10 Essential (primary) hypertension; E03.9 Hypothyroidism, unspecified; Z85.3 Personal history of malignant neoplasm of breast; Z79.899 Other long term (current) drug therapy; Z79.890 Hormone replacement therapy; Z88.0 Allergy status to penicillin